=== PATIENT | female | born 1970 | race Caucasian/White ===

== ENCOUNTER 2016-08-30 10:17 | Emergency (ER) | payer OTHER ==
[2016-08-30] MEDS ORDERED: Octyl 2-Cyanoacrylate 1 APPLIC TUBE TOP ONE (10:31)
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
[2016-08-30 11:06] VITALS: BP 129/78
== END 2016-08-30 11:00 | disposition home or self-care (01) ==
LOC: MW.ED 10:17
DX: S01.511A Laceration without foreign body of lip, initial encounter (principal); Z88.1 Allergy status to other antibiotic agents; W22.8XXA Striking against or struck by other objects, initial encounter; Y99.0 Civilian activity done for income or pay
CPT/HCPCS: 12011; 99283; A9270; 99282

== ENCOUNTER 2017-04-10 11:00 | Day surgery (SDC) | payer BC, OTHER ==
[~2017-04-10 11:00] MED LIST: Lactated Ringers 1,000 ML IV SCH; Lidocaine 2% 5 ML SDV ONE; Propofol 200 MG/20 ML SDV ONE; Sodium Chloride 0.9% 10 ML Syringe FLUSH PRN; Sodium Chloride 0.9% 2.5 ML Syringe FLUSH PRN; fentaNYL 100 MCG/2 ML SDV ONE
--- NOTE | 2017-04-10 13:07 | PCM.PREANE ---
Preanesthetic Assessment - Anesthesia/Transfusion/Family Hx Anesthesia History: Prior Anesthesia Without Reaction Family History of Anesthesia Reaction: No Transfusion History: No Prior Transfusion(s) - Review of Systems General: No Symptoms Pulmonary: No Symptoms Cardiovascular: No Symptoms Gastrointestinal: No Symptoms Neurological: No Symptoms Other: Reports: None - Physical Assessment NPO Status Date: 04/09/17 Height: 1.75 m Weight: 99.79 kg ASA Class: 2 Mental Status: Alert & Oriented x3 Dentition: Reports: Normal Dentition ROM/Head Extension: Full Lungs: Clear to Auscultation, Normal Respiratory Effort Cardiovascular: Regular Rate, Regular Rhythm - Lab Values: Laboratory Last Values Urine HCG, Qual NEGATIVE (NEGATIVE) 04/10/17 11:08 - Allergies Allergies/Adverse Reactions: Allergies Allergy/AdvReac Type Severity Reaction Status Date / Time vancomycin Allergy Abdominal Verified 08/30/16 10:26 Cramps - Anesthesia Plan Pre-Op Medication Ordered: None - Acknowledgements Anesthesia Type Planned: MAC Pt an Appropriate Candidate for the Planned Anesthesia: Yes Alternatives and Risks of Anesthesia Discussed w Pt/Guardian: Yes Pt/Guardian Understands and Agrees with Anesthesia Plan: Yes Additional Comments: PMH: gerd and hx of MRSA PreAnesthesia Questionnaire HEENT History: Reports: Other (See Below) Other HEENT History: wears glasses/contacts Cardiovascular History: Reports: None Respiratory History: Reports: None Gastrointestinal History: Reports: GERD Genitourinary History: Reports: None AU PAIR History: Reports: Musculoskeletal History: Reports: Fracture Other Musculoskeletal History: broken bone left arm humers Neurological History: Reports: None Psychiatric History: Reports: None Endocrine/Metabolic History: Reports: Obesity/BMI 30+ Hematologic History: Reports: None Immunologic History: Reports: None Oncologic (Cancer) History: Reports: None Dermatologic History: Reports: Psoriasis, Other (See Below) Other Dermatologic History: hx MRSA to face - Infectious Disease History Infectious Disease History: Reports: None - Past Surgical History Head Surgeries/Procedures: Reports: None HEENT Surgical History: Reports: Other (See Below) Other HEENT Surgeries/Procedures: hx eye surgery as a child GI Surgical History: Reports: Cholecystectomy Musculoskeletal Surgical History: Reports: Other (See Below) Other Musculoskeletal Surgeries/Procedures:: hx surgery for fx arm - SUBSTANCE USE Smoking Status *Q: Never Smoker Second Hand Smoke Exposure: No Recreational Drug Use History: No - HOME MEDS Home Medications: Home Meds Esomeprazole Magnesium 40 mg PO DAILY 04/08/17 [History] - CURRENT (IN HOUSE) MEDS Current Meds: Current Medications Lactated Ringer's (Ringers, Lactated) 1,000 mls @ 125 mls/hr IV ASDIRECTED INGRID Sodium Chloride (Saline Flush) 10 ml FLUSH ASDIRECTED PRN PRN Reason: Keep Vein Open Sodium Chloride (Saline Flush) 2.5 ml FLUSH ASDIRECTED PRN PRN Reason: Keep Vein Open Sodium Chloride (Saline Flush) 10 ml FLUSH ASDIRECTED PRN PRN Reason: Keep Vein Open Sodium Chloride (Saline Flush) 2.5 ml FLUSH ASDIRECTED PRN PRN Reason: Keep Vein Open Discontinued Medications Fentanyl (Sublimaze) Confirm Administered Dose 100 mcg .ROUTE .STK-MED ONE Stop: 04/10/17 09:03 Lidocaine (Xylocaine-Mpf 2%) Confirm Administered Dose 5 ml .ROUTE .STK-MED ONE Stop: 04/10/17 09:03 Propofol (Diprivan 20 Ml) Confirm Administered Dose 400 mg .ROUTE .STK-MED ONE Stop: 04/10/17 09:03
[2017-04-10] MEDS ORDERED: Propofol 200 MG/20 ML SDV ONE ×3 (13:36→14:08)
[2017-04-10] MEDS ORDERED: Glycopyrrolate 0.2 MG/ML SDV ONE (14:10)
[2017-04-10] MEDS ORDERED: fentaNYL 100 MCG/2 ML SDV ONE (14:17)
--- NOTE | 2017-04-10 14:34 | PCM.OPNOTE ---
- General Post-Op/Procedure Note Date of Surgery/Procedure: 04/10/17 Operative Procedure(s): Diagnostic EGD and colonoscopy Findings: Hyperplastic gastric polyps, cecal polyp, diverticulosis. Grade 2 hemorrhoids Pre Op Diagnosis: melena Post-Op Diagnosis: Hyperplastic polyps, diverticulosis cecal polyp grade 2 hemorrhoids Anesthesia Technique: MAC Primary Surgeon: Faye Carr Condition: Good
--- NOTE | 2017-04-10 14:47 | PCM.POSTAN ---
POST ANESTHESIA ASSESSMENT - MENTAL STATUS Mental Status: Alert, Oriented - CARDIOVASCULAR CV Status: Pulse Rate WNL, Blood Pressure Stable - GASTROINTESTINAL GI Status: No Symptoms - POST OP HYDRATION Hydration Status: Adequate & Stable
--- NOTE | 2017-04-10 14:48 | PCM48HPAN ---
Post Anesthesia Note - EVALUATION WITHIN 48HRS OF ANESTHETIC Vital Signs in Normal Range: Yes Patient Participated in Evaluation: Yes Respiratory Function Stable: Yes Airway Patent: Yes Cardiovascular Function Stable: Yes Hydration Status Stable: Yes Pain Control Satisfactory: Yes Nausea and Vomiting Control Satisfactory: Yes Mental Status Recovered: Yes
[2017-04-10 14:50] VITALS: BP 117/61
--- NOTE | 2017-04-10 20:38 | OR ---
SURGEON: FAYE CARR MD DATE OF PROCEDURE: 04/10/2017 PREOPERATIVE DIAGNOSIS: Melena. POSTOPERATIVE DIAGNOSES: 1. Hyperplastic gastric polyps. 2. Cecal polyp. 3. Diverticulosis. 4. Grade 2 hemorrhoids. PROCEDURE PERFORMED: Diagnostic EGD and colonoscopy. ENDOSCOPIST: Faye Carr MD. ANESTHESIA: MAC. INSTRUMENT USED: Olympus endoscope and colonoscope. EXTENT OF EXAM: To the second portion of duodenum, to the cecum. PREPARATION: Fair to poor. LIMITATIONS: Extremely tortuous colon. INDICATIONS: The patient is a 46-year-old female, who takes a large amount of NSAIDs and recently noted her stools to be black and melenic. She was advised to stop NSAIDs. Since stopping them she has had no further melenic stool. Given this finding, the decision was made to perform a diagnostic EGD and colonoscopy. The patient and I discussed the procedures as well as expected perioperative course. We discussed the risks, including bleeding, infection, or damage to surrounding structures, including perforation. The patient verbalized understanding and wishes to proceed. PROCEDURE IN DETAIL: The patient was brought into the endoscopy suite and placed in a beach chair position. A time-out was completed verifying the patient's name, age, date of , allergies, and procedure to be performed. Monitored anesthesia care was induced and continuous oxygen was provided via nasal cannula throughout the procedure. A bite block was placed in the patient's mouth. After adequate sedation was achieved, a well lubricated endoscope was placed in the patient's mouth and advanced under direct visualization to the level of the second portion of the duodenum. This appeared normal and a photograph was taken. The scope was then fully withdrawn while examining the color, texture, anatomy, and integrity of the upper GI mucosa. The scope were brought into the stomach and a photograph was taken of the pylorus and the GE junction. These both appeared normal. The stomach showed no evidence of ulceration or inflammation. The patient did have hyperplastic polyps in the proximal body of the stomach. Two of these were removed and sent for pathology testing. Biopsies were taken of the gastric, body, antrum and fundus and sent for H. pylori testing. The scope was then brought into the distal esophagus and a photograph was taken of the GE junction. This appeared normal with no evidence of esophagitis. The remainder of the esophageal mucosa appeared normal. The scope was removed from the patient and this portion of procedure was terminated. The patient was then turned onto her left side. A digital rectal exam revealed grade 2 hemorrhoids. A well lubricated colonoscope was inserted into the rectum and advanced under direct visualization to the cecum. This was extremely difficult giving the great tortuosity of the patient's colon and significant looping that occurred during the case. The patient's prep was fair to poor with some solid stool still within the colon. A large amount of irrigation was able to clear the majority of this. Once the cecum was reached, a photograph was taken of the cecal cap. A 1-2 mm sessile polyp was noted within the cecum. This was removed using a cold biopsy forceps. The scope was then fully withdrawn while examining the color, texture, anatomy, and integrity of the mucosa from the cecum to the anal canal and extra care was taken to inspect the mucosa to ensure that no undue scope trauma had occurred given the difficulty of the case. The patient was found to have diffuse diverticulosis throughout the colon especially concentrated within the sigmoid colon. The remainder of the colon was free of polyps. The scope was brought into the rectum and retroflexed to allow visualization of the anal canal opening. This appeared normal and a photograph was taken. The scope was then straightened out and withdrawn from the patient. The cecum to anus time was 7 minutes. The patient tolerated the procedure well and was taken to PACU in stable condition. ENDOSCOPIC DIAGNOSES: 1. Gastric hyperplastic polyps. 2. Cecal polyps. 3. Diverticulosis. 4. Grade 2 hemorrhoids. RECOMMENDATIONS: Follow up in clinic in 2 weeks. TOÑA SANCHEZ /[id number]
== END 2017-04-10 14:33 | disposition home or self-care (01) ==
LOC: MW.SDS 11:00
PROVIDERS: ATTEND Surgery
DX: D12.0 Benign neoplasm of cecum (principal); K31.7 Polyp of stomach and duodenum; K57.30 Diverticulosis of large intestine without perforation or abscess without bleeding; K64.1 Second degree hemorrhoids; Z88.8 Allergy status to other drugs, medicaments and biological substances; Z79.899 Other long term (current) drug therapy
CPT/HCPCS: 43239; 45380; 81025; J3010; J7120; 88304; 88312; J2704

== ENCOUNTER 2019-05-12 14:20 | Emergency (ER) | payer BC ==
[2019-05-12 14:43] VITALS: BP 154/91
--- NOTE | 2019-05-12 15:04 | EDM.PDOC ---
ED HPI GENERAL MEDICAL PROBLEM - General Chief Complaint: General Stated Complaint: FLU SYMPTOMS Time Seen by Provider: 05/12/19 14:22 Source of Information: Reports: Patient History Limitations: Reports: No Limitations - History of Present Illness INITIAL COMMENTS - FREE TEXT/NARRATIVE: HISTORY AND PHYSICAL: History of present illness: Patient is a 48-year-old female who presents to the emergency room today with complaints of sinus pressure, sore throat general fatigue x 3 to 4 weeks. She states she was seen in the walk-in clinic about 3 weeks ago for these symptoms and had been tested for strep throat, this was negative. She states symptoms have been ongoing but waxing and waning in intensity. She has had a few loose stools although does not describe it as diarrhea currently. Patient denies any headache, change in vision, syncope or near syncope. Denies any chest pain, back pain, shortness of breath or cough. Denies any abdominal pain, nausea, vomiting, constipation or dysuria. Has not noted any blood in urine or stool. Patient has been eating and drinking appropriately. Review of systems: As per history of present illness and below otherwise all systems reviewed and negative. Past medical history: As per history of present illness and as reviewed below otherwise noncontributory. Surgical history: As per history of present illness and as reviewed below otherwise noncontributory. Social history: See social history for further information Family history: As per history of present illness and as reviewed below otherwise noncontributory. Physical exam: General: Well-developed and well-nourished 48-year-old female. Alert and oriented. Nontoxic-appearing and in no acute distress. HEENT: Atraumatic, normocephalic, pupils equal and reactive bilaterally, negative for conjunctival pallor or scleral icterus, mucous membranes moist, TMs normal bilaterally, throat clear, neck supple, nontender, trachea midline. No drooling or trismus noted. No meningeal signs. No hot potato voice noted. Lungs: Clear to auscultation, breath sounds equal bilaterally, chest nontender. Heart: S1S2, regular rate and rhythm without overt murmur Abdomen: Soft, nondistended, nontender. Negative for masses or hepatosplenomegaly. Negative for costovertebral tenderness. Pelvis: Stable nontender. Skin: Intact, warm, dry. No lesions or rashes noted. Extremities: Atraumatic, moves all extremities per self without difficulty or deficits, negative for cords or calf pain. Neurovascular unremarkable. Neuro: Awake, alert, oriented. Cranial nerves II through XII unremarkable. Cerebellum unremarkable. Motor and sensory unremarkable throughout. Exam nonfocal. Notes: Lab is unremarkable. With the length of symptoms I am going to treat her with Augmentin. We discussed the need for follow-up with her primary care provider for reevaluation and further management of her healthcare needs. Supportive care measures were reviewed and discussed. Voices understanding and is agreeable to plan of care. Denies any further questions or concerns at this time. Diagnostics: CBC, CMP, [place] [employer]: None Prescription: Augmentin Impression: Sinusitis Plan: 1. Take your medication as directed. Good handwashing and contact precautions as we discussed. 2. Warm Salt water gargles (rinse and spit) 3-4 x daily. Please get a new tooth brush after completion of your medication 3. Tylenol and or ibuprofen as needed for pain management. 4. Follow-up with your primary care provider in the next 1-2 days. Return to the ED as needed and as discussed. Definitive disposition and diagnosis as appropriate pending reevaluation and review of above. 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: Musculoskeletal History: Reports: Fracture Other Musculoskeletal History: broken bone left arm humers Neurological History: Reports: None Psychiatric History: Reports: None Endocrine/Metabolic History: Reports: Obesity/BMI 30+ Hematologic History: Reports: None Immunologic History: Reports: None Oncologic (Cancer) History: Reports: None Dermatologic History: Reports: Psoriasis, Other (See Below) Other Dermatologic History: hx MRSA to face - Infectious Disease History Infectious Disease History: Reports: MRSA - Past Surgical History Head Surgeries/Procedures: Reports: None HEENT Surgical History: Reports: Other (See Below) Other HEENT Surgeries/Procedures: hx eye surgery as a child GI Surgical History: Reports: Cholecystectomy, Colonoscopy Musculoskeletal Surgical History: Reports: Other (See Below) Other Musculoskeletal Surgeries/Procedures:: hx surgery for fx arm Social & Family History - Family History Family Medical History: Noncontributory - Tobacco Use Smoking Status *Q: Never Smoker - Caffeine Use Caffeine Use: Reports: Coffee, Energy Drinks, Soda - Recreational Drug Use Recreational Drug Use: No ED ROS GENERAL - Review of Systems Review Of Systems: Comprehensive ROS is negative, except as noted in HPI. ED EXAM, GENERAL - Physical Exam Exam: See Below (See dictation) Course - Vital Signs Last Recorded V/S: Last Vital Signs Temp 97.3 F 05/12/19 14:41 Pulse 77 05/12/19 14:41 Resp 18 05/12/19 14:41 BP 154/91 H 05/12/19 14:41 Pulse Ox 97 05/12/19 14:41 - Orders/Labs/Meds Labs: Laboratory Tests 05/12/19 05/12/19 05/12/19 Range/Units 15:07 15:07 15:07 WBC 10.36 (4.0-11.0) K/uL RBC 4.93 (4.30-5.90) M/uL Hgb 13.6 (12.0-16.0) g/dL Hct 41.3 (36.0-46.0) % MCV 83.8 (80.0-98.0) fL MCH 27.6 (27.0-32.0) pg MCHC 32.9 (31.0-37.0) g/dL RDW Std Deviation 47.4 (28.0-62.0) fl RDW Coeff of Sera 16 H (11.0-15.0) % Plt Count 242 (150-400) K/uL MPV 10.60 (7.40-12.00) fL Neut % (Auto) 71.1 (48.0-80.0) % Lymph % (Auto) 19.8 (16.0-40.0) % [place] % (Auto) 7.2 (0.0-15.0) % Eos % (Auto) 1.7 (0.0-7.0) % Baso % (Auto) 0.2 (0.0-1.5) % Neut # (Auto) 7.4 H (1.4-5.7) K/uL Lymph # (Auto) 2.1 (0.6-2.4) K/uL [place] # (Auto) 0.8 (0.0-0.8) K/uL Eos # (Auto) 0.2 (0.0-0.7) K/uL Baso # (Auto) 0.0 (0.0-0.1) K/uL Nucleated RBC % 0.0 /100WBC Nucleated RBCs # 0 K/uL Sodium 137 (136-145) mmol/L Potassium 3.8 (3.5-5.1) mmol/L Chloride 102 (98-107) mmol/L Carbon Dioxide 24.7 (21.0-32.0) mmol/L BUN 12 (7.0-18.0) mg/dL Creatinine 0.8 (0.6-1.0) mg/dL Est Cr Clr Drug Dosing 91.83 mL/min Estimated GFR (MDRD) > 60.0 ml/min Glucose 120 H (74-106) mg/dL Calcium 9.0 (8.5-10.1) mg/dL Total Bilirubin 0.6 (0.2-1.0) mg/dL AST 26 (15-37) IU/L ALT 35 (14-63) IU/L Alkaline Phosphatase 75 (46-116) U/L Total Protein 7.7 (6.4-8.2) g/dL Albumin 3.4 (3.4-5.0) g/dL Globulin 4.3 H (2.6-4.0) g/dL Albumin/Globulin Ratio 0.8 L (0.9-1.6) Monoscreen NEGATIVE (NEG) Departure - Departure Time of Disposition: 16:07 Disposition: Home, Self-Care 01 Clinical Impression: Sinusitis Qualifiers: Sinusitis location: maxillary Chronicity: unspecified Qualified Code(s): J32.0 - Chronic maxillary sinusitis - Discharge Information Prescriptions: Amoxicillin/Clavulanate K [Augmentin 875-125 MG] 1 tab PO BID 10 Days #20 tablet Instructions: Sinusitis, Adult, [id number] Referrals: Medeiros,Will A, MD [Primary Care Provider] - Forms: ED Department Discharge Additional Instructions: The following information is given to patients seen in the emergency department who are being discharged to home. This information is to outline your options for follow-up care. We provide all patients seen in our emergency department with a follow-up referral. The need for follow-up, as well as the timing and circumstances, are variable depending upon the specifics of your emergency department visit. If you don't have a primary care physician on staff, we will provide you with a referral. We always advise you to contact your personal physician following an emergency department visit to inform them of the circumstance of the visit and for follow-up with them and/or the need for any referrals to a consulting specialist. The emergency department will also refer you to a specialist when appropriate. This referral assures that you have the opportunity for follow-up care with a specialist. All of these measure are taken in an effort to provide you with optimal care, which includes your follow-up. Under all circumstances we always encourage you to contact your private physician who remains a resource for coordinating your care. When calling for follow-up care, please make the office aware that this follow-up is from your recent emergency room visit. If for any reason you are refused follow-up, please contact the [facility] at and asked to speak to the emergency department charge nurse. [facility] [address] [place] [id number] [place] [address] 1. Labs were normal. Take your medication as directed. 2. Warm Salt water gargles (rinse and spit) 3-4 x daily. Please get a new tooth brush after completion of your medication 3. Tylenol and or ibuprofen as needed for pain management. 4. Follow-up with your primary care provider in the next 1-2 days. Return to the ED as needed and as discussed. Sepsis Event Note - Evaluation Sepsis Screening Result: No Definite Risk - Focused Exam Vital Signs: Vital Signs Temp Pulse Resp BP Pulse Ox 01/07/20 14:41 97.3 F 77 18 154/91 H 97 Date Exam was Performed: 05/12/19 Time Exam was Performed: 16:06
[2019-05-12 15:52] LABS: BLOOD UREA NITROGEN,BUN 12 mg/dL (7.0-18.0); CARBON DIOXIDE,CO2 24.7 mmol/L (21.0-32.0); CHLORIDE,CL 102 mmol/L (98-107); GLUCOSE RANDOM 120 mg/dL (74-106); POTASSIUM,K 3.8 mmol/L (3.5-5.1); SODIUM,NA 137 mmol/L (136-145)
[2019-05-12 16:18] VITALS: PULSE 68
== END 2019-05-12 16:21 | disposition home or self-care (01) ==
LOC: MW.ED 14:20
DX: J32.0 Chronic maxillary sinusitis (principal); Z88.1 Allergy status to other antibiotic agents; Z79.899 Other long term (current) drug therapy
CPT/HCPCS: 36415; 80053; 85025; 86308; 99283

== ENCOUNTER 2022-09-10 10:38 | Emergency (ER) | payer BC, OTHER ==
[2022-09-10] MEDS ORDERED: Sodium Chloride 0.9% 10 ML Syringe FLUSH PRN (10:55)
[2022-09-10] MEDS ORDERED: Sodium Chloride 0.9% 2.5 ML Syringe FLUSH PRN (10:55)
[2022-09-10 11:05] LABS: BASOPHILS PERCENT AUTO 0.3 % (0.0-1.5); EOSINOPHILS ABSOLUTE AUTO 0.2 K/uL (0.0-0.7); EOSINOPHILS PERCENT AUTO 1.5 % (0.0-7.0); HEMATOCRIT 41.7 % (36.0-46.0); HEMOGLOBIN 13.8 g/dL (12.0-16.0); LYMPHOCYTES ABSOLUTE AUTO 1.7 K/uL (0.6-2.4); LYMPHOCYTES PERCENT AUTO 14.8 % (16.0-40.0); MEAN CORPUSCULAR HEMOGLOBIN 29.6 pg (27.0-32.0); MEAN CORPUSCULAR HGB CONC 33.1 g/dL (31.0-37.0); MEAN CORPUSCULAR VOLUME 89.5 fL (80.0-98.0); MONOCYTES ABSOLUTE AUTO 0.6 K/uL (0.0-0.8); MONOCYTES PERCENT AUTO 5.2 % (0.0-15.0); NEUTROPHILS ABSOLUTE AUTO 9.2 K/uL (1.4-5.7); NEUTROPHILS PERCENT AUTO 78.2 % (48.0-80.0); NRBC ABSOLUTE 0 K/uL; PLATELET COUNT,PLT 244 K/uL (150-400); RED BLOOD CELL COUNT 4.66 M/uL (4.30-5.90); WHITE BLOOD CELL COUNT,WBC 11.71 K/uL (4.0-11.0)
[2022-09-10] MEDS ORDERED: LORazepam 2 MG/ML SDV IVPUSH STA (11:05)
[2022-09-10 11:24] LABS: ALBUMIN 3.6 g/dL (3.4-5.0); BILIRUBIN TOTAL 0.5 mg/dL (0.2-1.0); CALCIUM 9.4 mg/dL (8.5-10.1); CREATININE 0.9 mg/dL (0.6-1.0); EST CRCL DRUG DOSING (CG) 79.02 mL/min; POTASSIUM,K 4.1 mmol/L (3.5-5.1); PROTEIN TOTAL,TP 7.3 g/dL (6.4-8.2)
[2022-09-10 11:46] LABS: CORONAVIRUS COVID-19 NAA NEGATIVE (NEGATIVE); INFLUENZA A NAA NEGATIVE (NEGATIVE); INFLUENZA B NAA NEGATIVE (NEGATIVE)
[2022-09-10 12:57] VITALS: BP 144/77; PULSE 79
== END 2022-09-10 12:57 | disposition home or self-care (01) ==
LOC: MW.ED 10:38
DX: F41.9 Anxiety disorder, unspecified (principal); K21.9 Gastro-esophageal reflux disease without esophagitis; E66.9 Obesity, unspecified; Z68.35 Body mass index [BMI] 35.0-35.9, adult; Z88.1 Allergy status to other antibiotic agents; Z79.899 Other long term (current) drug therapy; Z20.822 Contact with and (suspected) exposure to COVID-19
CPT/HCPCS: 0240U; 36415; 71045; 80053; 83735; 84484; 85025; 93005; 96374; 99285; J2060; J3490; 93010; 99284

== ENCOUNTER 2025-03-26 12:03 | Emergency (ER) | payer BC, OTHER ==
[2025-03-26] MEDS ORDERED: Sodium Chloride 0.9% 2.5 ML Syringe FLUSH PRN (12:32)
[2025-03-26] MEDS ORDERED: Sodium Chloride 0.9% 10 ML Syringe FLUSH PRN (12:32)
[2025-03-26 12:36] LABS: BASOPHILS ABSOLUTE AUTO 0.05 K/uL (0.00-0.20); BASOPHILS PERCENT AUTO 0.3 % (0.0-1.0); EOSINOPHILS ABSOLUTE AUTO 0.01 K/uL (0.00-0.45); EOSINOPHILS PERCENT AUTO 0.1 % (0.0-6.0); IMMATURE GRAN ABSOLUTE AUTO 0.06 K/uL (0.00-0.05); IMMATURE GRAN PERCENT AUTO 0.3 % (0.0-0.4); LYMPHOCYTES ABSOLUTE AUTO 0.32 K/uL (1.00-4.80); LYMPHOCYTES PERCENT AUTO 1.8 % (24.0-44.0); MEAN PLATELET VOLUME 10.4 fL (9.4-12.3); MONOCYTES ABSOLUTE AUTO 0.68 K/uL (0.00-0.80); MONOCYTES PERCENT AUTO 3.9 % (0.0-8.0); NEUTROPHILS ABSOLUTE AUTO 16.50 K/uL (1.80-7.70); NEUTROPHILS PERCENT AUTO 93.6 % (41.0-71.0); NRBC ABSOLUTE 0.00 K/uL (0.00-0.02); NRBC PERCENT 0.0 /100WBC (0.0-0.2); PLATELET COUNT,PLT 238 K/uL (150-400); RED BLOOD CELL COUNT 4.42 M/uL (4.10-5.30); WHITE BLOOD CELL COUNT,WBC 17.62 K/uL (3.9-11.3)
[2025-03-26 13:15] LABS: A/G RATIO 0.9 (0.9-1.6); ALANINE AMINOTRANSFERASE,ALT 58.0 IU/L (14-63); ASPARTATE AMNIOTRANSFERASE,AST 60.0 IU/L (15-37); BILIRUBIN TOTAL 0.6 mg/dL (0.2-1.0); BLOOD UREA NITROGEN,BUN 15.0 mg/dL (7.0-18.0); CARBON DIOXIDE,CO2 25.5 mmol/L (21.0-32.0); CHLORIDE,CL 103.0 mmol/L (98-107); CREATININE 1.0 mg/dL (0.6-1.0); EST CRCL DRUG DOSING (CG) 61.61 mL/min; GLUCOSE RANDOM 229.0 mg/dL (74-106); POTASSIUM,K 4.4 mmol/L (3.5-5.1); PROTEIN TOTAL,TP 7.4 g/dL (6.4-8.2); SODIUM,NA 139.0 mmol/L (136-145)
[2025-03-26 13:16] LABS: ESTIMATED GFR 68.0 mL/min (>60)
[2025-03-26] MEDS: Iopamidol 755 MG/ML 500 ML Multipack Bottle IVPUSH STA (13:18)
[2025-03-26] MEDS: Ondansetron 4 MG/2 ML SDV IVPUSH ONE (13:27)
[2025-03-26] MEDS: Ampicillin/Sulbactam Na 3 GM in Sodium Chloride 0.9% 100 ML IV ONE (13:27)
[2025-03-26] MEDS: Dexamethasone Sod Phos Preservative Free 10 MG/ML Vial IVPUSH ONE (13:28)
[2025-03-26] MEDS: Ketorolac 30 MG/ML SDV IVPUSH ONE (13:28)
[2025-03-26 14:35] VITALS: PULSE 106
[2025-03-26 16:47] VITALS: BP 124/69
== END 2025-03-26 15:01 | disposition home or self-care (01) ==
LOC: MW.ED 12:03
DX: K02.9 Dental caries, unspecified (principal); L03.211 Cellulitis of face; E11.65 Type 2 diabetes mellitus with hyperglycemia; Z88.8 Allergy status to other drugs, medicaments and biological substances; Z79.899 Other long term (current) drug therapy; Z90.49 Acquired absence of other specified parts of digestive tract
CPT/HCPCS: 36415; 70487; 70487-26; 80053; 83036; 85025; 85652; 86140; 96361; 96365; 96375; 99283; 99284-25; J0295; J1100; J1885; J2405; J7030; Q9967